=== PATIENT | male | born 1940 | race Caucasian/White ===

== ENCOUNTER 2016-08-12 13:25 | Inpatient (IN) | payer OTHER ==
[~2016-08-12] VITALS: Ht 170.2 cm; Wt 106.3 kg
[~2016-08-12 13:25] MED LIST: AMLO-114 PO; ASPCH81X PO; CLOP1TAB15 PO; FINA5TAB PO; LIVALO PO; LOSA100T26 PO; METF-384 PO; METO200T29 PO; NIAC500T11 PO; TAMS0.4C38 PO
--- NOTE | 2016-08-12 15:38 | EMERGENCY ROOM VISIT NOTE ---
History First contact with patient: 15:01 Chief Complaint: ILLNESS Stated Complaint: LETHARGIC, HYPERTENSION, DEHYDRATED HX: DIABETES History of Present Illness The patient is a 76 year old male who presents to the Emergency Room with complaints of feeling "blah" He has been having generalized malaise for the past 1 week. He also has nonstop nausea and has had difficulty eating and drinking PO. His symptoms occur primarily with exertion and walking. Daughter and note that he has note been able to ambulate much for the past week. He has also been feeling unsteady on his feet and weak. He did fall last night and family did need to all EMS to help pick him up at that time. Daughter and are concerned that he has been very unsteady on his feet. He denies any vertigo. This morning, his took his blood pressure, it was 191/139. He called his PCP's office and was told to come to the ED for further evaluation. Daughter notes that his BPs have been quite labile for the past several weeks and he was recently started on Spironolactone to help treat his hypertension. His blood pressures today were as follows: Today AM: 191/139;145/191;116/73 00;l128/70 Yesterday: BPs ranged from 160-180 systolic 2 days ago: 133/67; 148/86; 165/108; 166/106 He denies any chest pain, shortness of breath, palpitations of syncope. He denies lower extremity swelling but daughter notes that he does. He denies any headache He has not travelled recently and there are no sick contacts. Review of Systems A 10 point review of systems was negative unless stated above. 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) Current/Historical Medications Scheduled Amlodipine (Norvasc), 10 MG PO QAM Aspirin (Aspirin Chewable), 81 MG PO QAM Clopidogrel (Plavix), 75 MG PO QAM Dorzolamide Hcl (Trusopt Oph), 1 DROPS OPB BID Finasteride (Proscar), 5 MG PO QAM Losartan Potassium & Hydrochlo (Losartan Potassium/Hydroc), 1 TAB PO QAM Metformin Hcl (Glucophage), 1,000 MG PO BID Spironolactone (Aldactone), 25 MG PO DAILY Tamsulosin Hcl (Flomax), 0.4 MG PO QAM Travoprost (Travatan Z), 1 DROPS OPB HS [Livalo], 4 MG PO QAM Allergies Coded Allergies: Statins (Unverified Adverse Reaction, Intermediate, CRAMPS, 08/12/16) Physical Exam Vital Signs Date Time Temp Pulse Resp B/P Pulse Ox O2 Delivery O2 Flow Rate FiO2 08/12/16 16:50 96 20 150/86 91 Room Air 08/12/16 15:30 74 18 147/85 99 Room Air 08/12/16 13:31 36.7 78 18 128/80 92 Room Air Physical Exam Constitutional: Vital signs as above were reviewed. Eyes: Pupils equal, round, and reactive to light. Extraocular muscles are intact. No proptosis. No photophobia. ENT: Mucous membranes are moist. Oropharynx is clear. No sinus tenderness. TMs are clear bilaterally. Cardiovascular: Heart with a regular rate and rhythm. Pulses are palpable and symmetric in all 4 extremities. No pedal edema appreciated. JVD 2 cm in seated position; increased to 4 cm with hepatojugular reflex manoeuvre Respiratory: Lungs clear to auscultation bilaterally. No wheezes, rales, or rhonchi appreciated. No accessory muscle use. No retractions. No increased work of breathing. GI: Abdomen soft, nontender, nondistended. Normal active bowel sounds. No abdominal hernias appreciated. No rebound. No guarding. : No CVA tenderness appreciated. Musculoskeletal: No midline cervical or vertebral tenderness. No gross deformities. No bony tenderness. No calf swelling or tenderness. Baseline tenderness in left calf, secondary to neuropathy Integumentary: Warm, dry, no rashes appreciated. Neurological: Patient awake, alert, and oriented x 3. Cranial nerves two through 12 grossly intact. Motor 5 out of 5 strength bilateral upper and lower extremities. Lymph: No cervical lymphadenopathy appreciated. Medical Decision & Procedures ER Provider Diagnostic Interpretation: CHEST ONE VIEW PORTABLE CLINICAL HISTORY: shortness of breath and fatigue dyspnea COMPARISON STUDY: 08/06/2015 FINDINGS: The bones soft tissues and hemidiaphragms are normal. The cardiomediastinal silhouette is normal. The lungs are clear. The pulmonary vasculature is normal. IMPRESSION: Negative chest. Electronically signed by: Dmitry Hernandez M.D. 08/12/2016 3:57 PM Dictated Date/Time: 08/12/2016 3:56 PM Laboratory Results 08/12/16 15:35 Red Blood Count 5.34, Mean Corpuscular Volume 87.1, Mean Corpuscular Hemoglobin 30.0, Mean Corpuscular Hemoglobin Concent 34.4, Mean Platelet Volume 9.3, Neutrophils (%) (Auto) 65.5, Lymphocytes (%) (Auto) 10.9, Monocytes (%) (Auto) 23.2, Eosinophils (%) (Auto) 0.0, Basophils (%) (Auto) 0.2, Neutrophils # (Auto ) 3.44, Lymphocytes # (Auto) 0.57, Monocytes # (Auto) 1.22, Eosinophils # (Auto ) 0.00, Basophils # (Auto) 0.01 08/12/16 15:35 Test 08/12/16 15:35 08/12/16 17:03 White Blood Count 5.25 K/uL (4.8-10.8) Red Blood Count 5.34 M/uL (4.7-6.1) Hemoglobin 16.0 g/dL (14.0-18.0) Hematocrit 46.5 % (42-52) Mean Corpuscular Volume 87.1 fL (80-100) Mean Corpuscular Hemoglobin 30.0 pg (25-34) Mean Corpuscular Hemoglobin Concent 34.4 g/dl (32-36) Platelet Count 145 K/uL (130-400) Mean Platelet Volume 9.3 fL (7.4-10.4) Neutrophils (%) (Auto) 65.5 % Lymphocytes (%) (Auto) 10.9 % Monocytes (%) (Auto) 23.2 % Eosinophils (%) (Auto) 0.0 % Basophils (%) (Auto) 0.2 % Neutrophils # (Auto) 3.44 K/uL (1.4-6.5) Lymphocytes # (Auto) 0.57 K/uL (1.2-3.4) Monocytes # (Auto) 1.22 K/uL (0.11-0.59) Eosinophils # (Auto) 0.00 K/uL (0-0.5) Basophils # (Auto) 0.01 K/uL (0-0.2) RDW Standard Deviation 41.6 fL (36.4-46.3) RDW Coefficient of Variation 13.1 % (11.5-14.5) Immature Granulocyte % (Auto) 0.2 % Immature Granulocyte # (Auto) 0.01 K/uL (0.00-0.02) Anion Gap 12.0 mmol/L (3-11) Est Creatinine Clear Calc Drug Dose 51.6 ml/min Estimated GFR () 55.8 Estimated GFR (Non- 48.1 BUN/Creatinine Ratio 17.8 (10-20) Calcium Level 9.2 mg/dl (8.5-10.1) Total Bilirubin 0.5 mg/dl (0.2-1) Aspartate Amino Transf (AST/SGOT) 23 U/L (15-37) Alanine Aminotransferase (ALT/SGPT) 47 U/L (12-78) Alkaline Phosphatase 88 U/L (45-117) Total Creatine Kinase 113 U/L (39-308) Creatine Kinase MB 1.5 ng/ml (0.5-3.6) Creatine Kinase MB Ratio 1.3 (0-3.0) Troponin I 0.019 ng/ml (0-0.045) Total Protein 7.8 gm/dl (6.4-8.2) Albumin 3.8 gm/dl (3.4-5.0) Globulin 4.0 gm/dl (2.5-4.0) Albumin/Globulin Ratio 1.0 (0.9-2) Urine Color YELLOW Urine Appearance CLEAR (CLEAR) Urine pH 5.0 (4.5-7.5) Urine Specific [place] 1.014 (1.000-1.030) Urine Protein 2+ (NEG) Urine Glucose (UA) TRACE (NEG) Urine Ketones TRACE (NEG) Urine Occult Blood NEG (NEG) Urine Nitrite NEG (NEG) Urine Bilirubin NEG (NEG) Urine Urobilinogen NEG (NEG) Urine Leukocyte Esterase NEG (NEG) Urine WBC (Auto) 1-5 /hpf (0-5) Urine RBC (Auto) 0-4 /hpf (0-4) Urine Hyaline Casts (Auto) 1-5 /lpf (0-5) Urine Epithelial Cells (Auto) 10-20 /lpf (0-5) Urine Bacteria (Auto) NEG (NEG) Medications Administered Medications (Trade) Dose Ordered Sig/Юлия Route Start Time Stop Time Status Last Admin Dose Admin Sodium Chloride (Nss 500ml) 500 ml @ 999 mls/hr Q31M IV 08/12/16 15:30 09/11/16 15:29 08/12/16 15:41 999 MLS/HR ECG Change: Sinus tachycardia Minor Non-specific intra-ventricular conduction delay Abnormal ECG When compared with ECG of 06-AUG-2015 14:43, Vent. rate has increased BY 34 BPM QRS duration mildly increased Confirmed by YAEL HART ([id number]) on 08/12/2016 4:53:15 PM ED Course 15:00 - Patient evaluated Orders: CBC, CMP, troponin, CK, CKBM, EKG chest x-ray 16:25 - Reviewed CXR; no acute process CBC and CMP are grossly normal Reviewed case with Dr. Castorena UA ordered 17:10 - Discussed case with Dr. Castorena Added on UA to check for UTI Patient remains stable 17:30 - Dr. Castorena assessed patient in room Discussed admission for troponin trending and evaluation of ambulatory dysfunction 18:00 - Case discussed with Dr. Trujillo; patient to be admitted to hospitalist service for further care Medical Decision A thorough history was obtained, physical examination performed and the EMR was reviewed. The case was reviewed multiple times over with Dr. Maci Castorena during the patient's ED visit. Patient presents with 1 week of exertional nausea, poor intake and ambulatory dysfunction. Differential diagnosis Given cardiac history, we cannot exclude this being of cardiac etiology. An EKG did not show any acute ST or T wave changes today and in the ED he did not have active complaints of chest pain or shortness of breath. One set of cardiac enzymes was negative. However, he would benefit from observation and troponin trending. Review of labs was negative for infection, anemia. CMP was negative for renal dysfunction or derangement of liver enzymes. A chest x-ray was negative for evidence consolidation and urinalysis was unremarkable for infection. Unfortunately, the cause of his symptom is still unknown. He has been given 500 ml of IV fluid and notes feeling a little bit better. Unfortunately, he has had ambulatory dysfunction at home and family notes it would be unsafe for him to go home. He already fell yesterday and required assistance from EMS services. As such he would benefit form PT and OT evaluations to determine whether he needs inpatient rehabilitation. The case as discussed with the hospitalist service. He was discharged in stable condition. Impression Primary Impression: Nausea & vomiting Additional Impression: Ambulatory dysfunction Departure Information Dispostion Being Evaluated By Hospitalist Condition GOOD Referrals Sundeep Huffman M.D. (PCP) Patient Instructions My [facility] Problem Qualifiers
[2016-08-12] MEDS: SODIUM CHLORIDE 0.9% 500ML 500 ML IV SCH ×3 (15:41→16:32)
[2016-08-12 15:48] LABS: BASO % 0.2 %; BASO ABS # 0.01 K/uL (0-0.2); COMPLETE YES; HEMATOCRIT 46.5 % (42-52); IG% 0.2 %; LYMPH % 10.9 %; LYMPH ABS # 0.57 K/uL (1.2-3.4); MEAN CELL VOLUME 87.1 fL (80-100); MEAN CORPUSCULAR HGB CONC 34.4 g/dl (32-36); MEAN PLATELET VOLUME 9.3 fL (7.4-10.4); MONO % 23.2 %; NEUT % 65.5 %; PLATELET COUNT 145 K/uL (130-400); RED BLOOD COUNT 5.34 M/uL (4.7-6.1); WHITE BLOOD COUNT 5.25 K/uL (4.8-10.8)
[2016-08-12] MEDS ORDERED: DORZ2SOL17 OPB (15:54)
[2016-08-12] MEDS ORDERED: SPIR25TA89 PO (15:54)
[2016-08-12] MEDS ORDERED: TRAV0.00 OPB (15:54)
--- NOTE | 2016-08-12 15:58 | DIAGNOSTIC IMAGING REPORT ---
CHEST ONE VIEW PORTABLE CLINICAL HISTORY: shortness of breath and fatigue dyspnea COMPARISON STUDY: 08/06/2015 FINDINGS: The bones soft tissues and hemidiaphragms are normal. The cardiomediastinal silhouette is normal. The lungs are clear. The pulmonary vasculature is normal. IMPRESSION: Negative chest. Electronically signed by: Dmitry Hernandez M.D. 08/12/2016 3:57 PM Dictated Date/Time: 08/12/2016 3:56 PM
[2016-08-12 16:12] LABS: BUN/CREATININE RATIO 17.8 (10-20); CALCIUM 9.2 mg/dl (8.5-10.1); CREATININE 1.4 mg/dl (0.60-1.40); POTASSIUM 3.7 mmol/L (3.5-5.1)
[2016-08-12 16:17] LABS: CKMB/CK RATIO 1.3 (0-3.0)
[2016-08-12 17:30] LABS: URINE APPEARANCE CLEAR (CLEAR); URINE BILIRUBIN NEG (NEG); URINE COLOR YELLOW; URINE NITRITE NEG (NEG); URINE SPECIFIC GRAVITY 1.014 (1.000-1.030); UROBILINOGEN NEG (NEG); ZZUR CULT IF INDIC CLEAN CATCH NO
[2016-08-12 17:33] LABS: MANUAL MICROSCOPIC REQUIRED? NO; REVIEW REQ? NO
--- NOTE | 2016-08-12 18:12 | EMERGENCY ROOM VISIT NOTE ---
ED Visit Note First contact with patient: 15:19 Resident Physician Supervision Note: I interviewed and examined the patient. Discussed with Dr. Humphrey and agree with findings and plan as documented in the note. Any exceptions or clarifications are listed here: Patient's laboratory work is fairly unrevealing. He seems to be resting comfortably on exam. According to the patient's family, he has had some ambulatory dysfunction and fall. He has an exertional nausea and vomiting. He will be evaluated by the hospitalist service for further cardiac evaluation. Please refer to 's notes for further details of the history, physical and visit. Documented By: Maci Castorena
[2016-08-12] MEDS ORDERED: NITROGLYCERIN 0.4 MG SL PER TAB CHARGE SL PRN (19:15)
[2016-08-12] MEDS ORDERED: ACETAMINOPHEN 325 MG TAB PO PRN (19:15)
[2016-08-12] MEDS ORDERED: ZOLPIDEM TARTRATE 5 MG TAB PO PRN (19:15)
[2016-08-12] MEDS ORDERED: GLUCOSE 40% GEL 15 GM TUBE PO PRN (19:30)
[2016-08-12] MEDS ORDERED: DEXTROSE 50% 50 ML SYR IV PRN (19:30)
[2016-08-12] MEDS ORDERED: GLUCOSE 10 TABS/TUBE PO PRN (19:30)
[2016-08-12] MEDS ORDERED: GLUCAGON FOR INJ 1 MG VIAL SQ PRN (19:30)
[2016-08-12] MEDS ORDERED: ONDANSETRON INJ 2 MG/ML 2 ML VIAL IV PRN (19:30)
[2016-08-12 20:00] VITALS: BP 136/68; PULSE 96; TEMP 36.6; O2SAT 93; Ht 170.2 cm; Wt 106.3 kg
[2016-08-12] MEDS: DICLOFENAC SOD 1% GEL 100 GM TUBE EXT SCH (21:42)
[2016-08-12] MEDS: DORZOLAMIDE HCL 2% OPH SOLN 10 ML BTL OPB SCH (21:42)
[2016-08-12] MEDS: TRAVOPROST Z 0.004% OPH SOLN 2.5 ML BTL OPB SCH (21:43)
[2016-08-12] MEDS: INSULIN ASPART 100 UNITS/ML 3 ML PEN SC SCH (21:44)
[2016-08-12] MEDS: TAMSULOSIN HCL 0.4 MG CAP PO SCH ×2 (21:44→21:45)
[2016-08-12 22:17] LABS: CKMB/CK RATIO 1.1 (0-3.0)
[2016-08-12] MEDS ORDERED: INFLUENZA VIRUS QUAD VACCINE 0.5 ML SYR IM. ONE (23:15)
[2016-08-12] MEDS ORDERED: INFLUENZA ADMINISTRATION CHARGE ONE (23:15)
[2016-08-12] MEDS: SIMETHICONE 80 MG CHEW PO SCH (23:38)
[2016-08-12 23:40] VITALS: BP 117/70; PULSE 86; TEMP 37; O2SAT 93
[2016-08-13 03:29] LABS: CKMB/CK RATIO 1.4 (0-3.0)
--- NOTE | 2016-08-13 03:47 | History and Physical ---
History & Physical Date & Time of Service: Aug 13, 2016 at 03:35 Chief Complaint: Nausea And Vomiting, Sob Primary Care Physician: Sundeep Huffman M.D. History of Present Illness Source: patient, family The patient is a 76-year-old male who presents emergency department with family with generalized malaise, nausea and dyspnea on exertion. He is been unsteady on his feet with general is weakness and unable to walk much over the past 1-2 weeks. He did fall at home last night, and family called EMS to help pick them up at that time. He denies any lightheadedness or dizziness or vertigo. His took his blood pressure at home, reportedly was 191/131, and when called his PCPs office, they referred him to emergency department for assessment. He has not had any recent travel, and is not aware of any sick contacts. 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) Multi-Drug Resistant Organisms History of MDRO: No Allergies Coded Allergies: Statins (Unverified Adverse Reaction, Intermediate, CRAMPS, 08/12/16) Home Medications Scheduled Amlodipine (Norvasc), 10 MG PO QAM Aspirin (Aspirin Chewable), 81 MG PO QAM Clopidogrel (Plavix), 75 MG PO QAM Dorzolamide Hcl (Trusopt Oph), 1 DROPS OPB BID Finasteride (Proscar), 5 MG PO QAM Losartan Potassium & Hydrochlo (Losartan Potassium/Hydroc), 1 TAB PO QAM Metformin Hcl (Glucophage), 1,000 MG PO BID Spironolactone (Aldactone), 25 MG PO DAILY Tamsulosin Hcl (Flomax), 0.4 MG PO QAM Travoprost (Travatan Z), 1 DROPS OPB HS [Livalo], 4 MG PO QAM Review of Systems The patient denies vision change, hearing change, sore throat, fevers, chills, sweats, weight change, vomiting, abdominal pain, pelvic pain, blood in urine or stool, dysuria, urinary frequency or urgency, rash, abnormal bruising or bleeding, focal weakness, back or neck pain, night sweats, or allergy symptoms. The review of systems is otherwise negative other than for that already noted above, and at least 10 systems have been reviewed. Physical Exam Vital Signs Date Time Temp Pulse Resp B/P Pulse Ox O2 Delivery O2 Flow Rate FiO2 08/13/16 00:00 Room Air 08/12/16 23:40 37.0 86 20 117/70 93 Room Air 08/12/16 20:00 36.6 96 18 136/68 93 Room Air 08/12/16 19:35 78 18 120/86 93 08/12/16 18:24 95 18 126/79 93 Room Air 08/12/16 16:50 96 20 150/86 91 Room Air 08/12/16 15:30 74 18 147/85 99 Room Air 08/12/16 13:31 36.7 78 18 128/80 92 Room Air The patient is awake, well-developed and adequately nourished, alert and oriented 3, normocephalic and atraumatic, lying in bed and in no acute distress. HEENT--PERRL, EOMI, mucous membranes and oropharynx dry. Neck--supple, no JVD or bruits, thyroid normal, trachea midline, no adenopathy. Heart--normal S1 and S2, no extra beats, no murmurs, rubs or gallops. Lungs--few scattered wheezes bilaterally, no respiratory distress, no accessory muscle use. Abdomen--normal bowel sounds and soft, nontender and nondistended, no hernias or masses, no organomegaly. Extremities--no cyanosis, clubbing or edema. There are good distal pulses b/l. Dermatologic--normal skin turgor, normal color, warm and dry, no abnormal lymph nodes, no rash. Neurologic--cranial nerves II through XII grossly intact, motor and sensory examination normal. Rheumatologic--significant tenderness to light touch along medial malleolus right leg. Psychiatric--normal affect. Diagnostics Laboratory Results Results Past 24 Hours Test 08/12/16 15:35 08/12/16 17:03 08/12/16 21:22 08/12/16 21:40 Range/Units White Blood Count 5.25 4.8-10.8 K/uL Red Blood Count 5.34 4.7-6.1 M/uL Hemoglobin 16.0 14.0-18.0 g/dL Hematocrit 46.5 42-52 % Mean Corpuscular Volume 87.1 80-100 fL Mean Corpuscular Hemoglobin 30.0 25-34 pg Mean Corpuscular Hemoglobin Concent 34.4 32-36 g/dl Platelet Count 145 130-400 K/uL Mean Platelet Volume 9.3 7.4-10.4 fL Neutrophils (%) (Auto) 65.5 % Lymphocytes (%) (Auto) 10.9 % Monocytes (%) (Auto) 23.2 % Eosinophils (%) (Auto) 0.0 % Basophils (%) (Auto) 0.2 % Neutrophils # (Auto) 3.44 1.4-6.5 K/uL Lymphocytes # (Auto) 0.57 1.2-3.4 K/uL Monocytes # (Auto) 1.22 0.11-0.59 K/uL Eosinophils # (Auto) 0.00 0-0.5 K/uL Basophils # (Auto) 0.01 0-0.2 K/uL RDW Standard Deviation 41.6 36.4-46.3 fL RDW Coefficient of Variation 13.1 11.5-14.5 % Immature Granulocyte % (Auto) 0.2 % Immature Granulocyte # (Auto) 0.01 0.00-0.02 K/uL Sodium Level 135 136-145 mmol/L Potassium Level 3.7 3.5-5.1 mmol/L Chloride Level 96 98-107 mmol/L Carbon Dioxide Level 27 21-32 mmol/L Anion Gap 12.0 3-11 mmol/L Blood Urea Nitrogen 25 7-18 mg/dl Creatinine 1.40 0.60-1.40 mg/dl Est Creatinine Clear Calc Drug Dose 51.6 ml/min Estimated GFR () 55.8 Estimated GFR (Non- 48.1 BUN/Creatinine Ratio 17.8 10-20 Random Glucose 180 70-99 mg/dl Uric Acid 8.2 2.6-7.2 mg/dl Calcium Level 9.2 8.5-10.1 mg/dl Total Bilirubin 0.5 0.2-1 mg/dl Aspartate Amino Transf (AST/SGOT) 23 15-37 U/L Alanine Aminotransferase (ALT/SGPT) 47 12-78 U/L Alkaline Phosphatase 88 45-117 U/L Total Creatine Kinase 113 105 39-308 U/L Creatine Kinase MB 1.5 1.2 0.5-3.6 ng/ml Creatine Kinase MB Ratio 1.3 1.1 0-3.0 Troponin I 0.019 0.027 0-0.045 ng/ml Total Protein 7.8 6.4-8.2 gm/dl Albumin 3.8 3.4-5.0 gm/dl Globulin 4.0 2.5-4.0 gm/dl Albumin/Globulin Ratio 1.0 0.9-2 Urine Color YELLOW Urine Appearance CLEAR CLEAR Urine pH 5.0 4.5-7.5 Urine Specific [place] 1.014 1.000-1.030 Urine Protein 2+ NEG Urine Glucose (UA) TRACE NEG Urine Ketones TRACE NEG Urine Occult Blood NEG NEG Urine Nitrite NEG NEG Urine Bilirubin NEG NEG Urine Urobilinogen NEG NEG Urine Leukocyte Esterase NEG NEG Urine WBC (Auto) 1-5 0-5 /hpf Urine RBC (Auto) 0-4 0-4 /hpf Urine Hyaline Casts (Auto) 1-5 0-5 /lpf Urine Epithelial Cells (Auto) 10-20 0-5 /lpf Urine Bacteria (Auto) NEG NEG Bedside Glucose 132 70-99 mg/dl Test 08/13/16 03:03 Range/Units Total Creatine Kinase 99 39-308 U/L Creatine Kinase MB 1.4 0.5-3.6 ng/ml Creatine Kinase MB Ratio 1.4 0-3.0 Troponin I 0.023 0-0.045 ng/ml Diagnostic Radiology Patient Name: PAULINE MONTALVO Unit Number: [id number] Dictated: 08/12/161555 Transcribed: 08/12/161555 MS Printed Date/Time: [~ rep prt dt]/[~ rep prt tm] [~ rep ct labl] - [~ rep ct ivnm] [facility] [place] [place] [address] Dictated: 08/12/161555 Transcribed: 08/12/16 155 MS Printed Date/Time: [~ rep prt dt]/[~ rep prt tm] [~ rep ct labl] - [~ rep ct ivnm] CHEST ONE VIEW PORTABLE CLINICAL HISTORY: shortness of breath and fatigue dyspnea COMPARISON STUDY: 08/06/2015 FINDINGS: The bones soft tissues and hemidiaphragms are normal. The cardiomediastinal silhouette is normal. The lungs are clear. The pulmonary vasculature is normal. IMPRESSION: Negative chest. Electronically signed by: Dmitry Hernandez M.D. 08/12/2016 3:57 PM Dictated Date/Time: 08/12/2016 3:56 PM The status of this report is Signed. Draft = Not yet reviewed or approved by Radiologist. Signed = Reviewed and approved by Radiologist. <AttendingPhy></AttendingPhy> <FamilyPhy>Sundeep Huffman M.D.</FamilyPhy> < PrimaryPhy>Sundeep Huffman M.D.</PrimaryPhy> <UnitNumber>[id number]</UnitNumber > <VisitNumber>[id number]</VisitNumber> <PatientName>SELVINPAULINE Heather</ PatientName> <DateOfBirth>1940</DateOfBirth> <Location>[facility]</Location> < ServiceDate>08/12/16</ServiceDate> <MNE>ESINDI</MNE> <OrderingPhy>Rahul Humphrey MD</OrderingPhy> <OrderingPhyMNE>f rep ord dr alba</OrderingPhyMNE> < DictatingPhyMNE>f rep dict dr alba</DictatingPhyMNE> <CCListMNE>f rep ct parth</ CCListMNE> <AdmittingPhyMNE>f pt admit dr alba</AdmittingPhyMNE> <AttendingPhyMNE >f pt attend dr alba</AttendingPhyMNE> <ConsultingPhyMNE>f pt consult dr alba</ConsultingPhyMNE> <FamilyPhyMNE>f pt fam dr alba</FamilyPhyMNE> <OtherPhyMNE>f pt other dr alba</OtherPhyMNE> < PrimaryPhyMNE>f pt prim care dr alba</PrimaryPhyMNE> <ReferringPhyMNE>f pt referring dr alba</ReferringPhyMNE> EKG EKG shows sinus tachycardia 101 beats minute, left axis deviation, there are no acute ST-T changes. Impression Assessment and Plan Increased falls/decreased mobility/dyspnea on exertion/coronary artery disease history/right carotid stent, status post left CEA--the patient will be admitted to the telemetry unit for serial cardiac enzymes, cardiac rhythm monitoring, and a 2-D echocardiogram with Dopplers. His symptoms do not suggest a stroke. If cardiac workup is negative, he'll get a PT and OT assessment for gait and balance and strength training. Recurrent nausea/dyspnea on exertion--patient does have suggestion of aerophagia , and will be placed on simethicone 80 mg by mouth every 6 hours. Coronary disease/hypertension--continue amlodipine 10 mg by mouth every morning , chewable aspirin 81 mg by mouth every morning, clopidogrel 75 mg by mouth every morning, losartan potassium 50 mg by mouth daily, hold HCTZ 25 mg by mouth daily. Continue spironolactone 25 mg by mouth daily. Diabetes mellitus--hold metformin 1000 mg by mouth twice a day, place on Accu- Cheks before meals and at bedtime with NovoLog coverage. BPH--continue tamsulosin 0.4 mg by mouth a change from a.m. to at bedtime, and continue finasteride 5 mg by mouth every morning. Next Glaucoma--continue Travatan Z, 1 drop OPB at bedtime, and Trusopt one drop OPB twice a day. Hypercholesterolemia--on Livalo 4 mg by mouth daily. Right medial malleolus tenderness--question the possibility of gout, will check a uric acid level, and do a trial of topical Voltaren gel. Level of Care Telemetry Advanced Directives Existing Advance Directive: Yes Existing Living Will: Yes Existing Power of Teacher Learning Disabled: Yes Resuscitation Status FULL RESUSCITATION VTE Prophylaxis VTE Risk Assessment Done? Y/N: Yes Risk Level: Moderate Given or contraindicated: SCD's
[2016-08-13 04:00] VITALS: BP 140/74; PULSE 87; TEMP 36.9; O2SAT 91
[2016-08-13] MEDS ORDERED: PNEUMOCOCCAL POLYSACCHARIDES 25 MCG/0.5 ML VIAL/SYR IM. ONE (04:30)
[2016-08-13] MEDS ORDERED: PNEUMOCOCCAL ADMINISTRATION CHARGE ONE (04:30)
[2016-08-13] MEDS: SIMETHICONE 80 MG CHEW PO SCH ×4 (05:55→23:49)
[2016-08-13 07:23] LABS: BASO % 0.2 %; BASO ABS # 0.01 K/uL (0-0.2); COMPLETE YES; EOS % 0.2 %; HEMATOCRIT 43.7 % (42-52); LYMPH % 21.7 %; LYMPH ABS # 0.98 K/uL (1.2-3.4); MEAN CELL VOLUME 88.8 fL (80-100); MEAN CORPUSCULAR HEMOGLOBIN 30.9 pg (25-34); MEAN CORPUSCULAR HGB CONC 34.8 g/dl (32-36); MEAN PLATELET VOLUME 9.5 fL (7.4-10.4); MONO % 25.7 %; NEUT % 52.2 %; PLATELET COUNT 138 K/uL (130-400); RED BLOOD COUNT 4.92 M/uL (4.7-6.1); WHITE BLOOD COUNT 4.52 K/uL (4.8-10.8)
[2016-08-13 07:30] VITALS: BP 147/70; PULSE 72; TEMP 37.1; O2SAT 95
[2016-08-13 07:33] LABS: INR 1.1 (0.9-1.1); PARTIAL THROMBOPLASTIN RATIO 1.2; PROTHROMBIN TIME (PATIENT) 11.3 SECONDS (9.0-12.0)
[2016-08-13 07:56] LABS: BUN/CREATININE RATIO 18.5 (10-20); CALCIUM 8.7 mg/dl (8.5-10.1); CREATININE 1.2 mg/dl (0.60-1.40); MAGNESIUM 2.3 mg/dl (1.8-2.4); POTASSIUM 3.5 mmol/L (3.5-5.1)
[2016-08-13] MEDS: AMLODIPINE BESYLATE 5 MG TAB PO SCH (08:18)
[2016-08-13] MEDS: ASPIRIN 81 MG ECTAB PO SCH (08:18)
[2016-08-13] MEDS: FINASTERIDE 5 MG TAB PO SCH (08:18)
[2016-08-13] MEDS: CLOPIDOGREL BISULFATE 75 MG TAB PO SCH (08:19)
[2016-08-13] MEDS: LOSARTAN POTASSIUM 25 MG TAB PO SCH (08:19)
[2016-08-13] MEDS: TAMSULOSIN HCL 0.4 MG CAP PO SCH (08:22)
[2016-08-13] MEDS: DORZOLAMIDE HCL 2% OPH SOLN 10 ML BTL OPB SCH ×2 (08:25→20:49)
[2016-08-13] MEDS: DICLOFENAC SOD 1% GEL 100 GM TUBE EXT SCH ×4 (08:26→20:51)
[2016-08-13] MEDS: INSULIN ASPART 100 UNITS/ML 3 ML PEN SC SCH ×4 (08:35→20:44)
[2016-08-13] MEDS ORDERED: LIVALO 4 MG PO SCH (09:00)
[2016-08-13] MEDS: SPIRONOLACTONE 25 MG TAB PO SCH (09:18)
[2016-08-13 11:09] VITALS: BP 124/67; PULSE 84; TEMP 37; O2SAT 92
[2016-08-13 11:57] LABS: CKMB/CK RATIO 1.3 (0-3.0)
[2016-08-13 14:35] VITALS: BP 134/74; PULSE 90; TEMP 36.8; O2SAT 91
--- NOTE | 2016-08-13 14:56 | DIAGNOSTIC IMAGING REPORT ---
CHEST 2 VIEWS ROUTINE CLINICAL HISTORY: Pneumonia SHORTNESS OF BREATH. FATIGUE. COMPARISON STUDY: 08/12/2016 FINDINGS: The heart is mildly enlarged. There is no focal pulmonary consolidation. There is no failure. No pleural effusions are visualized.[ IMPRESSION: No active disease in the chest. Electronically signed by: Hoang Self M.D. 08/13/2016 2:55 PM Dictated Date/Time: 08/13/2016 2:55 PM
[2016-08-13 16:43] LABS: INFLUENZA A PCR POS for Influ A (NEG)
[2016-08-13 16:44] LABS: INFLUENZA B PCR Neg for Influ B (NEG)
[2016-08-13] MEDS ORDERED: OSELTAMIVIR PHOSPHATE 75 MG CAP PO ONE (18:00)
[2016-08-13 19:56] VITALS: BP 149/83; PULSE 80; TEMP 36.9; O2SAT 91
[2016-08-13 20:00] VITALS: O2SAT 91
--- NOTE | 2016-08-13 20:33 | Progress Note ---
Subjective Date of Service: Aug 13, 2016. Subjective Pt evaluation today including: conversation w/ patient, conversation w/ family (, daughter ), physical exam, chart review, lab review, review of studies ( old echo from 2016; repeat cxr today), review of inpatient medication list Pain: denies h/a, cp, abd pain PO Intake: MUCH better today Voiding: no voiding problems (denies dysuria ) Patient states that anorexia, fatigue, feeling poorly, nausea, emesis, etc began last Friday or so and got worse thru the weekend. He feels MUCH BETTER today with better appetite, more energy, and less fatigue. Denies chest pain, sob, saldaña. He does not recall any fever/chills at home. Telemetry late this afternoon showed short run of what appears to be a. fib or some other atrial tachycardia (<10 seconds). Did not have flu shot this year. Gait at home was unsteady now improved. Problem List Medical Problems: (1) Ambulatory dysfunction Status: Acute (2) Nausea & vomiting Status: Acute (3) TIA (transient ischemic attack) Status: Acute Review of Systems Constitutional: + fatigue, + weakness, No chills, No fever, No sweats ENT: No sore throat Respiratory: No cough, No dyspnea at rest, No sputum Cardiac: No chest pain, No orthopnea Abdomen: + diarrhea (chronic, x 2-3 months), No nausea, No pain, No vomiting Objective Vital Signs Date Time Temp Pulse Resp B/P Pulse Ox O2 Delivery O2 Flow Rate FiO2 08/13/16 20:00 91 Room Air 08/13/16 19:56 36.9 80 16 149/83 91 Room Air 08/13/16 15:24 Room Air 08/13/16 14:35 36.8 90 20 134/74 91 08/13/16 11:29 Room Air 08/13/16 11:09 37.0 84 18 124/67 92 08/13/16 07:30 37.1 72 18 147/70 95 08/13/16 07:29 Room Air 08/13/16 04:00 36.9 87 20 140/74 91 Room Air 08/13/16 04:00 Room Air 08/13/16 00:00 Room Air 08/12/16 23:40 37.0 86 20 117/70 93 Room Air Physical Exam General Appearance: no apparent distress, + obese ENT: pharynx normal Neck: no JVD Respiratory/Chest: no respiratory distress, no accessory muscle use, + wheezing (mild, b/l lower lobes) Cardiovascular: regular rate, rhythm, no gallop, + systolic murmur (2/6 RUSB) Abdomen: normal bowel sounds, non tender, soft, no organomegaly Extremities: no pedal edema Neurologic/Psychiatric: no motor/sensory deficits, alert, normal mood/affect, oriented x 3 Skin: no rash Laboratory Results Last 24 Hours Test 08/12/16 21:22 08/12/16 21:40 08/13/16 03:03 08/13/16 06:40 Total Creatine Kinase 105 U/L 99 U/L Creatine Kinase MB 1.2 ng/ml 1.4 ng/ml Creatine Kinase MB Ratio 1.1 1.4 Troponin I 0.027 ng/ml 0.023 ng/ml Bedside Glucose 132 mg/dl White Blood Count 4.52 K/uL Red Blood Count 4.92 M/uL Hemoglobin 15.2 g/dL Hematocrit 43.7 % Mean Corpuscular Volume 88.8 fL Mean Corpuscular Hemoglobin 30.9 pg Mean Corpuscular Hemoglobin Concent 34.8 g/dl Platelet Count 138 K/uL Mean Platelet Volume 9.5 fL Neutrophils (%) (Auto) 52.2 % Lymphocytes (%) (Auto) 21.7 % Monocytes (%) (Auto) 25.7 % Eosinophils (%) (Auto) 0.2 % Basophils (%) (Auto) 0.2 % Neutrophils # (Auto) 2.36 K/uL Lymphocytes # (Auto) 0.98 K/uL Monocytes # (Auto) 1.16 K/uL Eosinophils # (Auto) 0.01 K/uL Basophils # (Auto) 0.01 K/uL RDW Standard Deviation 42.8 fL RDW Coefficient of Variation 13.2 % Immature Granulocyte % (Auto) 0.0 % Immature Granulocyte # (Auto) 0.00 K/uL Prothrombin Time 11.3 SECONDS Prothromb Time International Ratio 1.1 Activated Partial Thromboplast Time 30.1 SECONDS Partial Thromboplastin Ratio 1.2 Sodium Level 139 mmol/L Potassium Level 3.5 mmol/L Chloride Level 101 mmol/L Carbon Dioxide Level 28 mmol/L Anion Gap 10.0 mmol/L Blood Urea Nitrogen 22 mg/dl Creatinine 1.20 mg/dl Est Creatinine Clear Calc Drug Dose 59.9 ml/min Estimated GFR () 67.2 Estimated GFR (Non- 58.0 BUN/Creatinine Ratio 18.5 Random Glucose 136 mg/dl Calcium Level 8.7 mg/dl Magnesium Level 2.3 mg/dl Total Bilirubin 0.5 mg/dl Direct Bilirubin 0.1 mg/dl Aspartate Amino Transf (AST/SGOT) 27 U/L Alanine Aminotransferase (ALT/SGPT) 43 U/L Alkaline Phosphatase 77 U/L Total Protein 6.8 gm/dl Albumin 3.3 gm/dl Test 08/13/16 07:18 08/13/16 11:00 08/13/16 11:22 08/13/16 14:20 Bedside Glucose 127 mg/dl 168 mg/dl Total Creatine Kinase 99 U/L Creatine Kinase MB 1.3 ng/ml Creatine Kinase MB Ratio 1.3 Troponin I 0.023 ng/ml Influenza Type A (RT-PCR) POS for Influ A Influenza Type A Antigen Neg for Influ A Influenza Type B Antigen Neg for Influ B Influenza Type B (RT-PCR) Neg for Influ B Test 08/13/16 16:20 Bedside Glucose 131 mg/dl Assessment and Plan 76yo male: 1. influenza A infection - PCR +. Explains last several days of symptoms at home. Start tamiflu, although I counseled him it may not have huge impact on clinical course since he is several days into his illness. 2. nausea/emesis/diarrhea - resolved. Suspect 2nd to #1. 3. mild acute kidney injury - resolved; Cr was 1.4, now 1.2 with fluids. 2nd to dehydration. 4. elevated uric acid level - no evidence of active gout on exam, but has had gouty arthritis in the past. Stop HCTZ indefinitely. 5. HTN, with significant lability at home last few days - unsure of etiology of the lability, but perhaps was related to poor absorption of meds in the midst of emesis OR he wasn't taking them consistently because of decreased PO intake. Either way BPs are improved. 6. CAD s/p RCA infarct in the past - cont asa, plavix. Unsure why he is not on beta mayra. Cardiac enzymes completely negative since admission. I do not think he was having ischemic symptoms pre-hospital. ECHO in AM to assess wall motion and aortic stenosis. 7. h/o - echo in AM. 8. h/o embolic stroke - if the strip today was in fact a. fib he is candidate for anticoagulation. Would go with eliquis or xarelto. Will d/w patient in AM. 9. recent gait disturbance - likely due to #1 above. Improved. PT/OT evals prior to discharge. 10. T2DM - controlled. 11. right ankle pain - chronic, x 2-3 years -- tarsal tunnel syndrome? tibialis tendonitis? Podiatry referral after d/c. Cont voltaren gel. 12. DVT proph - lovenox 40 daily. updated family PT eval prior to d/c Discharge planning: home
[2016-08-13] MEDS: TRAVOPROST Z 0.004% OPH SOLN 2.5 ML BTL OPB SCH (20:50)
[2016-08-13] MEDS ORDERED: ENOXAPARIN 40 MG/0.4 ML SYR SQ ONE (21:30)
[2016-08-13] MEDS: OSELTAMIVIR PHOSPHATE 75 MG CAP PO SCH (23:50)
[2016-08-14] VITALS (10 sets, daily range): BP systolic 121–163; BP diastolic 75–83; PULSE 68–89; TEMP 36.7–37.2; O2SAT 91–94
[2016-08-14] MEDS: SIMETHICONE 80 MG CHEW PO SCH ×2 (05:15→12:35)
[2016-08-14 07:11] LABS: BASO % 0.4 %; BASO ABS # 0.02 K/uL (0-0.2); COMPLETE YES; EOS % 0.8 %; HEMATOCRIT 45.3 % (42-52); IG% 0.2 %; LYMPH % 15.8 %; LYMPH ABS # 0.84 K/uL (1.2-3.4); MEAN CELL VOLUME 87.8 fL (80-100); MEAN CORPUSCULAR HGB CONC 34.2 g/dl (32-36); MEAN PLATELET VOLUME 9.1 fL (7.4-10.4); MONO % 16.9 %; NEUT % 65.9 %; PLATELET COUNT 130 K/uL (130-400); RED BLOOD COUNT 5.16 M/uL (4.7-6.1); WHITE BLOOD COUNT 5.31 K/uL (4.8-10.8)
[2016-08-14 07:19] LABS: PARTIAL THROMBOPLASTIN RATIO 1.2; PROTHROMBIN TIME (PATIENT) 10.9 SECONDS (9.0-12.0)
[2016-08-14] MEDS: DORZOLAMIDE HCL 2% OPH SOLN 10 ML BTL OPB SCH (08:03)
[2016-08-14] MEDS: FINASTERIDE 5 MG TAB PO SCH (08:03)
[2016-08-14] MEDS: OSELTAMIVIR PHOSPHATE 75 MG CAP PO SCH (08:03)
[2016-08-14] MEDS: CLOPIDOGREL BISULFATE 75 MG TAB PO SCH (08:03)
[2016-08-14] MEDS: SPIRONOLACTONE 25 MG TAB PO SCH (08:03)
[2016-08-14] MEDS: ASPIRIN 81 MG ECTAB PO SCH (08:03)
[2016-08-14] MEDS: TAMSULOSIN HCL 0.4 MG CAP PO SCH (08:03)
[2016-08-14] MEDS: AMLODIPINE BESYLATE 5 MG TAB PO SCH (08:04)
[2016-08-14] MEDS: LOSARTAN POTASSIUM 25 MG TAB PO SCH (08:04)
[2016-08-14] MEDS: DICLOFENAC SOD 1% GEL 100 GM TUBE EXT SCH ×2 (08:05→12:37)
[2016-08-14] MEDS: INSULIN ASPART 100 UNITS/ML 3 ML PEN SC SCH ×2 (08:13→12:36)
[2016-08-14 08:21] LABS: CALCIUM 8.6 mg/dl (8.5-10.1); CREATININE 1.1 mg/dl (0.60-1.40); MAGNESIUM 2.2 mg/dl (1.8-2.4); POTASSIUM 3.4 mmol/L (3.5-5.1)
[2016-08-14] MEDS ORDERED: POTASSIUM CHLORIDE 10 MEQ TABCR PO STA (08:28)
[2016-08-14] MEDS ORDERED: METOPROLOL SUCC 25MG EXT REL TAB PO SCH (09:00)
[2016-08-14] MEDS ORDERED: ENOXAPARIN 40 MG/0.4 ML SYR SQ SCH (09:00)
[2016-08-14] MEDS ORDERED: PERFLUTREN LIPID MICROSPHERE (DEFINITY) IV ONE (10:41)
--- NOTE | 2016-08-14 12:01 | ECHOCARDIOGRAM REPORT ---
*NOTICE TO RECEIVING REPUBLICAN AGENCY This information is strictly Confidential and protected under [place] law. [place] law prohibits you from making any further disclosure of this information unless further disclosure is expressly permitted by the written consent of the person to whom it pertains or is authorized by law. A general authorization for the release of medical or other information is not sufficient for this purpose. Hospital accepts no responsibility if the information is made available to any other person, INCLUDING THE PATIENT. Interpretation Summary * Name: PAULINE MONTALVO Study Date: 08/14/2016 11:18 AM BP: 151/75 mmHg * Patient Location: [facility]\S\N277\S\2 HR: 81 * : 1940 (M/d/yyyy) Gender: Male Height: 67 in * Age: 76 yrs Ethnicity: [place] Weight: 234 lb * Ordering Physician: Fly Headley * Referring Physician: Sundeep Huffman * Performed By: Amanda Leach RDCS * * Reason For Study: AFIB, H/O CAD WITH SD * BSA: 2.2 m2 * History: AFIB, H/O CAD WITH SD * Compared to prior study, there is no significant change. * -- Conclusions -- * The left ventricle is normal in size. * There is mild concentric left ventricular hypertrophy. * There is very mild hypokinesis of the inferior and posterior layne at the base with otherwise normal wall motion. * Left ventricular systolic function is normal. * Ejection Fraction = 55-60%. * Grade I diastolic dysfunction, (abnormal relaxation pattern). * The aortic vavle leaflets are moderately calcified. * Mild to moderate valvular aortic stenosis. * There is trace mitral regurgitation. * There is trace tricuspid regurgitation. Procedure Details * A complete two-dimensional transthoracic echocardiogram was performed (2D, M-mode, Doppler and color flow Doppler). Left Ventricle * The left ventricle is normal in size. * There is mild concentric left ventricular hypertrophy. * Left ventricular systolic function is normal. * Ejection Fraction = 55-60%. * There is very mild hypokinesis of the inferior and posterior layne at the base with otherwise normal wall motion. Right Ventricle * The right ventricle is normal in size and function. Atria * The left atrial size is normal. * Right atrial size is normal. * No ASD detected; PFO is not assessed. Mitral Valve * The mitral valve anatomy is normal. * There is no mitral valve stenosis. * There is trace mitral regurgitation. Tricuspid Valve * The tricuspid valve anatomy is normal. * There is no tricuspid stenosis. * There is trace tricuspid regurgitation. Aortic Valve * The aortic valve is trileaflet. * The aortic vavle leaflets are moderately calcified. * Mild to moderate valvular aortic stenosis. * No aortic regurgitation is present. Pulmonic Valve * The pulmonic valve is not well visualized. Great Vessels * The aortic root is normal size. Pericardium/Pleural * There is no pericardial effusion. Great Vessels * Normal inferior vena cava diameter and respiratory variation suggests normal central venous pressure. Left Ventricular Diastolic Function * Grade I diastolic dysfunction, (abnormal relaxation pattern). MMode 2D Measurements and Calculations IVSd 1.0 cm IVSs 1.8 cm LVIDd 5.4 cm LVIDs 4.1 cm LVPWd 10 cm LVPWs 1.7 cm IVS/LVPW 1.0 FS 23.9 % EDV(Teich) 140.8 ml ESV(Teich) 74.3 ml EF(Teich) 47.2 % EDV(cubed) 156.7 ml ESV(cubed) 69.0 ml EF(cubed) 55.9 % % IVS thick 73.0 % % LVPW thick 71.9 % LV mass(C)d 211.9 grams LV mass(C)dI 97.9 grams/m\S\2 LV mass(C)s 311.7 grams LV mass(C)sI 144.1 grams/m\S\2 SV(Teich) 66.5 ml SI(Teich) 30.7 ml/m\S\2 SV(cubed) 87.7 ml SI(cubed) 40.5 ml/m\S\2 Ao root diam 3.5 cm Ao root area 9.9 cm\S\2 LA dimension 3.9 cm LA/Ao 1.1 LVAd ap4 34.6 cm\S\2 LVLd ap4 8.2 cm EDV(MOD-sp4) 120.3 ml EDV(sp4-el) 123.8 ml LVAs ap4 22.5 cm\S\2 LVLs ap4 7.1 cm ESV(MOD-sp4) 62.4 ml ESV(sp4-el) 60.9 ml EF(MOD-sp4) 48.1 % EF(sp4-el) 50.8 % LVAd ap2 36.8 cm\S\2 LVLd ap2 9.0 cm EDV(MOD-sp2) 125.6 ml EDV(sp2-el) 128.4 ml LVAs ap2 21.6 cm\S\2 LVLs ap2 6.9 cm ESV(MOD-sp2) 54.6 ml ESV(sp2-el) 57.3 ml EF(MOD-sp2) 56.5 % EF(sp2-el) 55.3 % LVLd %diff 8.7 % EDV(MOD-bp) 126.6 ml LVLs %diff -2.85 % ESV(MOD-bp) 58.5 ml EF(MOD-bp) 53.8 % SV(MOD-sp4) 57.8 ml SI(MOD-sp4) 26.7 ml/m\S\2 SV(MOD-sp2) 71.0 ml SI(MOD-sp2) 32.8 ml/m\S\2 SV(MOD-bp) 68.1 ml SI(MOD-bp) 31.5 ml/m\S\2 SV(sp4-el) 63.0 ml SI(sp4-el) 29.1 ml/m\S\2 SV(sp2-el) 71.1 ml SI(sp2-el) 32.9 ml/m\S\2 Doppler Measurements and Calculations Ao V2 max 273.5 cm/sec Ao max PG 29.9 mmHg Ao max PG (full) 26.3 mmHg Ao V2 mean 202.8 cm/sec Ao mean PG 18.2 mmHg Ao mean PG (full) 16.4 mmHg Ao V2 VTI 48.8 cm LV V1 max PG 3.6 mmHg LV V1 mean PG 1.8 mmHg LV V1 max 94.9 cm/sec LV V1 mean 60.9 cm/sec LV V1 VTI 18.1 cm SV(Ao) 482.1 ml SI(Ao) 222.9 ml/m\S\2
[2016-08-14] MEDS ORDERED: ALBUT/IPRATROP 3MG/0.5MG NEB 3 ML VIAL INH STA (12:19)
[2016-08-14] MEDS ORDERED: IPRATROPIUM BROMIDE/ALBUTEROL respimat INH INH SCH (15:15)
[2016-08-14] MEDS ORDERED: TMF75 PO (15:39)
[2016-08-14] MEDS ORDERED: METO1TAB66 PO (15:39)
[2016-08-14] MEDS ORDERED: VLTG EXT (15:39)
[2016-08-14] MEDS ORDERED: CZR25 PO (15:39)
[2016-08-14] MEDS ORDERED: IPRA1AER2 INH (15:39)
--- NOTE | 2016-08-14 15:46 | Discharge Instructions ---
Discharge Instructions Admission Reason for Admission: Nausea And Vomiting, Shortness of breath, Fatigue Discharge Discharge Diagnosis / Problem: Influenza Type A infection Discharge Goals Goal(s): Learn about illness, Diagnostic testing, Therapeutic intervention Activity Recommendations Activity Limitations: as noted below Lifting Limitations: gradually increase as tolerated Exercise/Sports Limitations: gradually increase as tolerated . Instructions / Follow-Up Instructions / Follow-Up From Dr. Headley - 1. Influenza - * You are likely at the very tail end of the illness * TAKE 4 more days of tamiflu starting this evening * At this point you are unlikely to be contagious to others * May use the combivent inhaler, 1 puff every 6 hours as needed for cough or shortness of breath or wheezing 2. Heart disease / High blood pressure - * STOP your losartan-hydrochlorothiazide medication ( the hydrochlorothiazide can give you gout attacks) * START losartan 25mg once daily * START metoprolol xl 50mg once daily 3. Right ankle pain - * may use voltaren gel, 2 grams every 6 hours as needed for pain * see Dr. Mitchel Schneider - orthopedics (he is a foot/ankle orthopedic doctor) or Dr. Marilyn Fields (shell grader) at your convenience for this chronic problem * the pain could be arthritis, tibialis tendonitis, tarsal tunnel syndrome, or another condition 4. Follow-up Appointments - * see Dr. Huffman within 1 week * see Dr. Crawford within 2-4 weeks Current Hospital Diet Patient's current hospital diet: AHA Diet (Heart Healthy), Diabetes Type 2 Diet Discharge Diet Recommended Diet: AHA Diet (Heart Healthy), Diabetes Type 2 Diet Procedures Procedures Performed: echocardiogram - normal heart function; evidence of old heart attack; mild aortic stenosis (calcium build-up on the valve) echo was UNCHANGED from 2016 Pending Studies Studies pending at discharge: no Medical Emergencies . Who to Call and When: Medical Emergencies: If at any time you feel your situation is an emergency, please call 911 immediately. . Non-Emergent Contact Non-Emergency issues call your: Primary Care Provider Call Non-Emergent contact if: temperature is above 100.5, your pain is concerning you, you have any medication questions . . "Provider Documentation" section prepared by Fly Headley. VTE Core Measure Inpt VTE Proph given/why not?: SCD's
--- NOTE | 2016-08-18 18:56 | Discharge Summary ---
Discharge Summary Admission Date: Aug 12, 2016 at 18:52 Discharge Date: Aug 14, 2016 Discharge Disposition: Home Principal Diagnosis: influenza A infection Problems/Secondary Diagnoses: 1. CAD with h/o multiple stents 2. carotid artery stenosis 3. ischemic cardiomyopathy with EF 55-60% 4. T2DM 5. BPH 6. chronic tobacco dependence 7. HTN 8. h/o gout 9. chronic right medial ankle pain 10. glaucoma 11. h/o stroke due to carotid stenosis 12. hyperlipidemia 13. mild-moderate aortic stenosis 14. brief run of atrial tachycardia 15. mild acute kidney injury - resolved; d/c creatinine 1.2 Procedures: echocardiogram - * -- Conclusions -- * The left ventricle is normal in size. * There is mild concentric left ventricular hypertrophy. * There is very mild hypokinesis of the inferior and posterior layne at the base with otherwise normal wall motion. * Left ventricular systolic function is normal. * Ejection Fraction = 55-60%. * Grade I diastolic dysfunction, (abnormal relaxation pattern). * The aortic vavle leaflets are moderately calcified. * Mild to moderate valvular aortic stenosis. * There is trace mitral regurgitation. * There is trace tricuspid regurgitation. Consultations: PT, OT Medication Reconciliation New Medications: Diclofenac Sod (Voltaren) 100 Appln/100 Gm Gel 1 APPLN EXT QID, #1 apply 2 grams to right ankle up to 4 times each day as needed for pain Ipratropium-Albuterol (Combivent Respimat) 1 Aer Aer 1 PUFFS INH QID PRN for cough, wheeze, #1 Losartan Potassium (Losartan Potassium) 25 Mg Tab 25 MG PO QAM, #30 TAB 5 Refills Metoprolol Succinate (Toprol Xl) 50 Mg Tab 1 TAB PO DAILY for 30 Days, #30 TAB 5 Refills Oseltamivir Phosphate (Tamiflu) 75 Mg Cap 75 MG PO BID for 4 Days, #8 CAP 0 Refills Continued Medications: Amlodipine (Norvasc) 10 Mg Tab 10 MG PO QAM, TAB Aspirin (Aspirin Chewable) 81 Mg Chew 81 MG PO QAM Clopidogrel (Plavix) 75 Mg Tab 75 MG PO QAM, TAB Dorzolamide Hcl (Trusopt Oph) 2 % Ibis 1 DROPS OPB BID, #10 ML 3 Refills Finasteride (Proscar) 5 Mg Tab 5 MG PO QAM, TAB Metformin Hcl (Glucophage) 1,000 Mg Tab 1000 MG PO BID, TAB Spironolactone (Aldactone) 25 Mg Tab 25 MG PO DAILY, TAB Tamsulosin Hcl (Flomax) 0.4 Mg Cap 0.4 MG PO QAM, CAP Travoprost (Travatan Z) 0.004 % Tu 1 DROPS OPB HS, #1 BTL 5 Refills [Livalo] () 4 MG PO QAM Discontinued Medications: Losartan Potassium & Hydrochlo (Losartan Potassium/Hydroc) 1 Tab Tab 1 TAB PO QAM for 90 Days, #90 TAB 3 Refills DOSE 100/25 Referrals At Discharge Follow up Referrals: Orthopedics Referral - Please Call For Appointment with Shadi Schneider D.O. Physician Referral - Please Call For Appointment with Marilyn Fields D.P.MHuong Discharge Exam Physical Exam: General Appearance: WD/WN, no apparent distress, + obese ENT: pharynx normal Neck: no JVD Respiratory/Chest: lungs clear, no respiratory distress, no accessory muscle use, + pertinent finding (previous mild end-exp wheezing resolved) Cardiovascular: regular rate, rhythm, no gallop, normal peripheral pulses, + systolic murmur (2/6 RUSB) Abdomen / GI: normal bowel sounds, non tender, soft, no organomegaly Extremities: no pedal edema Neurologic/Psychiatric: alert, oriented x 3 Hospital Course HISTORY OF PRESENT ILLNESS: The patient is a 76-year-old male who presented to the emergency department with generalized malaise, nausea and dyspnea on exertion. He had been unsteady on his feet with generalized weakness and difficulty walking. He had had a fall about 24 hours prior to admission. He also admitted to nausea, emesis, and diarrhea several days prior to admission. Denied any lightheadedness or dizziness or vertigo. On day of admission his took his blood pressure at home and reportedly it was 191/131. They contacted his PCP's office who recommended evaluation in the emergency department. He denied any recent travel and was not aware of any sick contacts. HOSPITAL COURSE: After undergoing work-up it was discovered that he was positive for influenza A infection. He made rapid improvement with simple supportive care measures including IV fluids and tamiflu. He had evidence of mild dehydration with acute kidney injury; creatinine improved from 1.4 to 1.2 with fluids. All GI symptoms, fatigue, and gait disturbance resolved prior to discharge. Serial chest x-rays failed to show complicating pneumonia. Cardiac enzymes were negative for ACS. Telemetry showed one brief run of atrial tachycardia. He was asymptomatic during this event. He was seen in consult by both PT and OT who felt he could return home safely. He will complete a course of tamiflu after discharge. Other issues addressed while here - 1. h/o gout - although he did not have active gouty arthritis, uric acid level was high, and he had been taking HCTZ prior to admission. It was advised to stop the HCTZ to allow uric acid level to fall and hopefully help him avoid future gout attacks. 2. HTN - was labile early on in his course but quickly improved with multiple medication adjustments. 3. CAD - it was discovered that he had not been taking his metoprolol for quite some time. He had been on toprol xl 200mg in the past. Since it was unknown how long he had been off of it he was restarted on a lower dose and tolerated it without difficulty. 4. atrial tachycardia - monitoring showed <10 second run of such. No a. fib/ flutter was seen. Consider outpatient event monitor to see if he is having runs of a. fib/flutter or other dysrhythmia. If a. fib was found, in light of high CHADs score and h/o stroke, anticoagulation would need to be considered. He will remain on beta mayra. 5. right medial ankle pain - chronic for 2-3 years. He had no evidence of synovitis or inflammatory arthritis on exam. Question tarsal tunnel syndrome or tibialis tendonitis. Symptoms were better with voltaren gel. Recommended podiatry referral or orthopedics referral after discharge for definitive treatment. Total Time Spent: Greater than 30 minutes This includes examination of the patient, discharge planning, medication reconciliation, and communication with other providers. Discharge Instructions Please refer to the electronic Patient Visit Report (Discharge Instructions) for additional information. Follow-Up 1. VISHAL Chatterjee - [facility] - FridayAugust 21 at 10:[address] Sundeep Huffman - August 22 at 2:30 pm Additional Copies To Shadi Schneider D.O.; Abdi Crawford D.O.; Sundeep Huffman M.D.; April Mcqueen PA-C
== END 2016-08-14 16:10 | disposition home or self-care (01) | DRG 153 ==
LOC: ENRESERVTM → ENRESERVDT → C.EDB 13:29 → C.MED 18:52
PROVIDERS: ADMIT Hospitalist; ATTEND Internal Medicine
DX: J11.1 Influenza due to unidentified influenza virus with other respiratory manifestations (principal); N17.9 Acute kidney failure, unspecified; R11.2 Nausea with vomiting, unspecified; R19.7 Diarrhea, unspecified; N40.0 Benign prostatic hyperplasia without lower urinary tract symptoms; H40.9 Unspecified glaucoma; E86.0 Dehydration; E11.9 Type 2 diabetes mellitus without complications; M10.00 Idiopathic gout, unspecified site; I35.0 Nonrheumatic aortic (valve) stenosis; E78.00 Pure hypercholesterolemia, unspecified; R26.89 Other abnormalities of gait and mobility; I25.10 Atherosclerotic heart disease of native coronary artery without angina pectoris; I10 Essential (primary) hypertension; I25.2 Old myocardial infarction; G57.50 Tarsal tunnel syndrome, unspecified lower limb; M76.829 Posterior tibial tendinitis, unspecified leg; R06.09 Other forms of dyspnea; R29.6 Repeated falls; Z86.73 Personal history of transient ischemic attack (TIA), and cerebral infarction without residual deficits; Z87.891 Personal history of nicotine dependence; Z95.828 Presence of other vascular implants and grafts; Z79.82 Long term (current) use of aspirin; Z79.02 Long term (current) use of antithrombotics/antiplatelets; Z79.4 Long term (current) use of insulin; Z79.899 Other long term (current) drug therapy

== ENCOUNTER → 2016-09-13 | Outpatient (CLI) | payer OTHER ==
[~2016-09-13] MED LIST changes: +CZR25 PO; +DORZ2SOL17 OPB; +IPRA1AER2 INH; -LOSA100T26 PO; +METO1TAB66 PO; -METO200T29 PO; -NIAC500T11 PO; +SPIR25TA89 PO; +TMF75 PO; +TRAV0.00 OPB; +VLTG EXT
[2016-09-13 13:38] LABS: BASO % 0.3 %; BASO ABS # 0.02 K/uL (0-0.2); COMPLETE YES; EOS % 1.7 %; HEMATOCRIT 44.2 % (42-52); IG% 0.3 %; LYMPH % 20.2 %; LYMPH ABS # 1.21 K/uL (1.2-3.4); MEAN CELL VOLUME 88.9 fL (80-100); MEAN CORPUSCULAR HEMOGLOBIN 30.6 pg (25-34); MEAN CORPUSCULAR HGB CONC 34.4 g/dl (32-36); MEAN PLATELET VOLUME 10.2 fL (7.4-10.4); MONO % 10.9 %; NEUT % 66.6 %; PLATELET COUNT 143 K/uL (130-400); RED BLOOD COUNT 4.97 M/uL (4.7-6.1); WHITE BLOOD COUNT 5.98 K/uL (4.8-10.8)
[2016-09-13 13:52] LABS: BLOOD UREA NITROGEN 26 mg/dl (7-18); BUN/CREATININE RATIO 23.4 (10-20); CALCIUM 9.1 mg/dl (8.5-10.1); CARBON DIOXIDE 22 mmol/L (21-32); CHLORIDE 105 mmol/L (98-107); GLUCOSE 134 mg/dl (70-99); POTASSIUM 4.3 mmol/L (3.5-5.1); SODIUM 138 mmol/L (136-145)
[2016-09-13 13:58] LABS: ESTIMATED AVERAGE GLUCOSE 160 mg/dl; HA1C FLAG Normal (Normal)
[2016-09-13 14:01] LABS: URINE PROTIEN/CREAT RATIO 0.9 (0-0.2); URINE TOTAL PROTEIN 120.9 mg/dl (0-11.9)
--- NOTE | 2016-09-19 06:44 | CODING QUERY MEDICAL NECESSITY ---
SUPPORTING DIAGNOSIS NEEDED A supporting diagnosis is required for the test/procedure performed on this patient in order for us to be reimbursed by the patient's insurance. Please provide a supporting diagnosis for the following test/procedure listed below next to the test name along with your signature. *If there is no additional diagnosis for this patient that would support the following test/procedure please document that below next to the test/procedure. Test(s)/Procedure(s) that require a supporting diagnosis: * VITAMIN D 25-HYDROXY DIAGNOSIS: * VITAMIN B-12 LEVEL DIAGNOSIS: * DOS: 09/13/16 Provider Signature: Date: Thank you Xenia Grossman Health Information Management Once completed, please kindly fax back to [phone] For questions please call [phone]
== END | disposition home or self-care (01) ==
LOC: C.LABBC 11:07
PROVIDERS: ATTEND Internal Medicine Geriatric Medicine
DX: I10 Essential (primary) hypertension (principal); I25.10 Atherosclerotic heart disease of native coronary artery without angina pectoris; M10.9 Gout, unspecified; E78.5 Hyperlipidemia, unspecified; E11.29 Type 2 diabetes mellitus with other diabetic kidney complication; G62.9 Polyneuropathy, unspecified; R80.9 Proteinuria, unspecified; E55.9 Vitamin D deficiency, unspecified

== ENCOUNTER → 2016-12-07 | Outpatient (CLI) | payer OTHER ==
[~2016-12-07] MED LIST changes: +METO-452 PO; -METO1TAB66 PO
[2016-12-07 13:06] LABS: BLOOD UREA NITROGEN 20 mg/dl (7-18); BUN/CREATININE RATIO 15.1 (10-20); CARBON DIOXIDE 25 mmol/L (21-32); CHLORIDE 104 mmol/L (98-107); GLUCOSE 159 mg/dl (70-99); POTASSIUM 4.5 mmol/L (3.5-5.1); SODIUM 139 mmol/L (136-145); URIC ACID 6.6 mg/dl (2.6-7.2)
[2016-12-07 13:09] LABS: CALCIUM 9.1 mg/dl (8.5-10.1)
[2016-12-07 13:40] LABS: ESTIMATED AVERAGE GLUCOSE 186 mg/dl; HA1C FLAG Normal (Normal)
== END | disposition home or self-care (01) ==
LOC: C.LABBC 11:08
PROVIDERS: ATTEND Internal Medicine Geriatric Medicine
DX: I10 Essential (primary) hypertension (principal); M10.9 Gout, unspecified; E55.9 Vitamin D deficiency, unspecified; E11.29 Type 2 diabetes mellitus with other diabetic kidney complication

== ENCOUNTER → 2016-12-31 | Outpatient (CLI) | payer OTHER ==
--- NOTE | 2016-12-31 12:26 | DIAGNOSTIC IMAGING REPORT ---
CHEST 2 VIEWS ROUTINE CLINICAL HISTORY: Peripheral edema dyspnea COMPARISON STUDY: 08/13/2016 FINDINGS: The bones soft tissues and hemidiaphragms are normal. The cardiomediastinal silhouette is normal. The lungs are clear. The pulmonary vasculature is normal. IMPRESSION: Negative chest. Electronically signed by: Dmitry Hernandez M.D. 12/31/2016 12:24 PM Dictated Date/Time: 12/31/2016 12:24 PM
--- NOTE | 2016-12-31 12:27 | DIAGNOSTIC IMAGING REPORT ---
RIGHT SHOULDER MIN 2 VIEWS ROUTINE CLINICAL HISTORY: Fall right Right pain COMPARISON: None. DISCUSSION: Considerable degenerative change acromioclavicular as well as glenohumeral joint. No well-defined acute bony abnormality. Cortical margins are intact. No abnormal soft tissue calcifications. There is no evidence for soft tissue swelling. IMPRESSION: Considerable degenerative change. No acute bony abnormality. Electronically signed by: Dmitry Hernandez M.D. 12/31/2016 12:26 PM Dictated Date/Time: 12/31/2016 12:25 PM
[2016-12-31 13:35] LABS: BASO % 0.5 %; BASO ABS # 0.03 K/uL (0-0.2); COMPLETE YES; EOS % 2.5 %; HEMATOCRIT 44.6 % (42-52); IG% 0.3 %; LYMPH % 19.8 %; LYMPH ABS # 1.26 K/uL (1.2-3.4); MEAN CELL VOLUME 89.6 fL (80-100); MEAN CORPUSCULAR HEMOGLOBIN 29.9 pg (25-34); MEAN CORPUSCULAR HGB CONC 33.4 g/dl (32-36); MEAN PLATELET VOLUME 9.9 fL (7.4-10.4); MONO % 9.9 %; PLATELET COUNT 167 K/uL (130-400); RED BLOOD COUNT 4.98 M/uL (4.7-6.1); WHITE BLOOD COUNT 6.35 K/uL (4.8-10.8)
[2016-12-31 14:23] LABS: BLOOD UREA NITROGEN 22 mg/dl (7-18); BUN/CREATININE RATIO 18.5 (10-20); CALCIUM 9.2 mg/dl (8.5-10.1); CARBON DIOXIDE 25 mmol/L (21-32); CHLORIDE 108 mmol/L (98-107); GLUCOSE 145 mg/dl (70-99); POTASSIUM 4.4 mmol/L (3.5-5.1); SODIUM 141 mmol/L (136-145)
== END | disposition home or self-care (01) ==
LOC: C.RADBC 11:57
PROVIDERS: ATTEND Physician Assistant Medical
DX: R60.9 Edema, unspecified (principal); W19.XXXA Unspecified fall, initial encounter; M19.011 Primary osteoarthritis, right shoulder

== ENCOUNTER → 2017-03-10 | Outpatient (CLI) | payer OTHER ==
[~2017-03-10] MED LIST changes: -METO-452 PO; +METO1TAB66 PO
[2017-03-10 14:23] LABS: ESTIMATED AVERAGE GLUCOSE 169 mg/dl; HA1C FLAG Normal (Normal)
[2017-03-10 14:25] LABS: ALT/SGPT 48 U/L (12-78); AST/SGOT 20 U/L (15-37); BLOOD UREA NITROGEN 13 mg/dl (7-18); BUN/CREATININE RATIO 10.8 (10-20); CALCIUM 8.9 mg/dl (8.5-10.1); CARBON DIOXIDE 25 mmol/L (21-32); CHLORIDE 108 mmol/L (98-107); GLUCOSE 138 mg/dl (70-99); SODIUM 139 mmol/L (136-145)
[2017-03-10 14:35] LABS: ALB/GLOB RATIO 0.9 (0.9-2); ALKALINE PHOSPHATASE 83 U/L (45-117); CHOLESTEROL 139 mg/dl (0-200); CHOLESTEROL/HDL RATIO 3.8; HDL CHOLESTEROL 37 mg/dl; LDL CHOLESTEROL CALCULATED 56 mg/dl; THYROID STIMULATING HORMONE 0.802 uIu/ml (0.300-4.500); TRIGLYCERIDES 231 mg/dl (0-150); VERY LOW DENSITY LIPOPROT CALC 46 mg/dl
--- NOTE | 2017-03-21 11:12 | CODING QUERY MEDICAL NECESSITY ---
CQSUPPORTING DIAGNOSIS NEEDED A supporting diagnosis is required for the test/procedure performed on this patient in order for us to be reimbursed by the patient's insurance. Please provide a supporting diagnosis for the following test/procedure listed below next to the test name along with your signature. *If there is no additional diagnosis for this patient that would support the following test/procedure please document that below next to the test/procedure. Test(s)/Procedure(s) that require a supporting diagnosis: DOS 03/10/17 VITAMIN B12 TEST Provider Signature: Date: Thank you Melba Siu Health Information Management Once completed, please kindly fax back to [phone] For questions please call [phone]
== END | disposition home or self-care (01) ==
LOC: C.LABBC 10:23
PROVIDERS: ATTEND Internal Medicine Geriatric Medicine
DX: I10 Essential (primary) hypertension (principal); I25.10 Atherosclerotic heart disease of native coronary artery without angina pectoris; E11.29 Type 2 diabetes mellitus with other diabetic kidney complication; G62.9 Polyneuropathy, unspecified; E55.9 Vitamin D deficiency, unspecified

== ENCOUNTER 2017-09-20 12:34 | Emergency (ER) | payer OTHER ==
[~2017-09-20] VITALS: Ht 177.8 cm; Wt 111.0 kg
[~2017-09-20 12:34] MED LIST changes: +METO-452 PO; -METO1TAB66 PO
[2017-09-20 12:45] VITALS: TEMP 37; Ht 177.8 cm; Wt 111.0 kg
[2017-09-20] MEDS ORDERED: SULFAMETHOXAZOLE/TRIMETHOPRIM DS 800/160MG TAB PO STA (13:01)
[2017-09-20] MEDS ORDERED: LIDO/EPINEPHRINE/SOD BICARB 20 ML VIAL INFIL ONE ×2 (13:04→13:15)
[2017-09-20] MEDS ORDERED: AMOXICILLIN/CLAVULANATE TAB 875 MG TAB PO ONE (13:15)
--- NOTE | 2017-09-20 13:29 | EMERGENCY ROOM VISIT NOTE ---
History Report prepared by Marily: Kiara Rodríguez Under the Supervision of: Dr. Israel Mahan M.D. First contact with patient: 12:54 Chief Complaint: OTHER COMPLAINT Stated Complaint: BOIL ON BACK History of Present Illness The patient is a 77 year old male who presents to the Emergency Room with complaints of a constant area of redness and swelling on his back beginning a week ago. The patient reports using hot compresses with no relief. He notes pain with laying on his back. He also reports some intermittent left abdominal pain beginning a couple days ago. He denies any worsening of abdominal pain with movement. When he has the episodes of abdominal pain it typically lasts for a 1-2 minutes. Presently, the patient denies any abdominal pain. He denies any fevers or urinary burning. The patient has had cysts, boils and black heads removed/expressed from his back previously. Source of History: patient Onset: a week ago Position: back Quality: other (area of redness and swelling) Timing: intermittent Associated Symptoms: + abdominal pain, No fevers, No urinary symptoms Review of Systems See HPI for pertinent positives & negatives. A total of 10 systems reviewed and were otherwise negative. Past Medical & Surgical Medical Problems: (1) AMS to rule out CVA (2) Diabetes (3) Heart disease (4) Hypertension (5) Right ankle pain (6) Shortness of breath Family History Patient reports no known family medical history. Social History Smoking Status: Former Smoker Alcohol Use: none Drug Use: none Marital Status: Housing Status: lives with family Occupation Status: retired Current/Historical Medications Scheduled Amlodipine (Norvasc), 10 MG PO QAM Amoxicillin & Pot Clavulanate (Augmentin 875-125 mg), 875 MG PO BID Aspirin (Aspirin Chewable), 81 MG PO QAM Cholecalciferol (Vitamin D3), 2,000 UNITS PO DAILY Clopidogrel (Plavix), 75 MG PO QAM Dorzolamide Hcl (Trusopt Oph), 1 DROPS OPB BID Finasteride (Proscar), 5 MG PO QAM Furosemide (Lasix), 20 MG PO DAILY Glimepiride (Glimepiride), 2 MG PO DAILY Losartan Potassium (Cozaar), 100 MG PO DAILY Metoprolol Succinate (Toprol Xl), 50 MG PO DAILY Pitavastatin Calcium (Livalo), 4 MG PO DAILY Spironolactone (Aldactone), 25 MG PO DAILY Sulfa/Trimethoprim (Bactrim Ds 800MG/160MG), 1 TAB PO BID Tamsulosin Hcl (Flomax), 0.4 MG PO QAM Travoprost (Travatan Z), 1 DROPS OPB HS [Livalo], 4 MG PO QAM Allergies Coded Allergies: Statins (Unverified Adverse Reaction, Intermediate, CRAMPS, 09/20/17) Physical Exam Vital Signs Date Time Temp Pulse Resp B/P (MAP) Pulse Ox O2 Delivery O2 Flow Rate FiO2 09/20/17 14:18 86 20 119/74 100 09/20/17 12:45 37.0 94 18 124/68 96 Room Air Physical Exam GENERAL: Patient is in no acute distress. HEENT: No acute trauma, normocephalic atraumatic, mucous membranes moist, no nasal congestion, no scleral icterus. NECK: No stridor, no adenopathy, no meningismus, trachea is midline. LUNGS: Clear to auscultation bilaterally, no wheeze, no rhonchi, breath sounds equal. HEART: Without murmurs gallops or rubs, regular rate and rhythm. ABDOMEN: Soft, nontender, bowel sounds positive, no hernias, no peritonitis. EXTREMITIES: No cyanosis or edema, full range of motion of all the joints without pain or difficulty, no signs for acute trauma. BACK: Lower thoracic/upper lumbar 5-6 cm area of erythema, midline, no discharge , no true fluctuance, but tender to palpation. NEUROLOGIC: Oriented x 3, no acute motor or sensory deficits, no focal weakness. SKIN: No rash, no jaundice, no diaphoresis. Medical Decision & Procedures Medications Administered Medications (Trade) Dose Ordered Sig/Юлия Route Start Time Stop Time Status Last Admin Dose Admin Amoxicillin/ Clavulanate Potassium (Augmentin Tab) 875 mg ONE ONCE PO 09/20/17 13:15 09/20/17 13:16 DC 09/20/17 13:53 875 MG Trimethoprim/ Sulfamethoxazole (Septra Ds 800/ 160MG Tab) 1 tab NOW STAT PO 09/20/17 13:01 09/20/17 13:03 DC 09/20/17 13:53 1 TAB Procedure Incision & Drainage Indication: Abscess. Location: Lower thoracic/upper lumbar Verbal consent was obtained after the risks and benefits were explained, including but not limited to bleeding, scarring, infection, pain, and bone/joint /nerve damage. At this time, the risks of the procedure are less than the risks of NOT performing the procedure. A time out was taken and the correct patient and site identified. The skin was prepped with betadine and a sterile field set. The wound was anesthetized with 3 cc of 1% lidocaine with epinephrine. The abscess cavity was entered with a number 11 blade and purulent, thick material expressed. Copious irrigation was performed using saline. The wound was explored for foreign bodies and none found. Debridement was not performed. Packing placed and a sterile dressing applied. Detailed wound care instructions and signs and symptoms of worsening infection reviewed with the patient. No complications and the patient tolerated the procedure well. ED Course 1255: The patient was evaluated in room A10. A complete history and physical exam was performed. 1301: Ordered Trimethoprim/Sulfamethoxazole 1 tab PO. 1304: Ordered Lidocaine/Epinephrine 20 ml INFIL. 1315: Ordered Lidocaine/Epinephrine 20 ml INFIL, Augmentin Tab 875 mg PO. 1340: Reevaluated the patient. Discussed results and discharge instructions: He verbalized understanding and agreement. The patient is ready for discharge. Medical Decision Differential diagnoses include: cellulitis, abscess, MRSA, intraabdominal mass, kidney failure, spleen issue, musculoskeletal pain. The patient presents with what seemed to be an abscess with some localized cellulitis to the mid back. This was located near a large blackhead that had been giving the patient difficulty for years. Patient was not toxic or febrile. Using lidocaine with epinephrine, using sterile technique, the abscess was opened and purulent, thick material was expressed. The debris from the blackhead was also removed. Packing was placed. The patient received oral Augmentin and oral Bactrim. He will be discharged on both of these medications. Patient needs to have the packing removed in 2 days. He requires general surgical follow-up to have the complete cystic structure removed once the infection has cleared. If he is worsening, he can return for reassessment. The patient did have a culture sent, this result is pending. With regard to the left upper quadrant abdominal pain. This has been intermittent and short-lived, there is no pain right now, outpatient family doctor follow-up was suggested. Medication Reconcilliation Current Medication List: was personally reviewed by me Blood Pressure Screening Patient's blood pressure: Normal blood pressure Impression Primary Impression: Abscess of back Scribe Attestation The scribe's documentation has been prepared under my direction and personally reviewed by me in its entirety. I confirm that the note above accurately reflects all work, treatment, procedures, and medical decision making performed by me. Departure Information Dispostion Home / Self-Care Prescriptions Amoxicillin & Pot Clavulanate (Augmentin 875-125 mg) 1 Tab Tab 875 MG PO BID for 10 Days, #20 TAB Prov: Israel Mahan M.D. 09/20/17 Sulfa/Trimethoprim (Bactrim Ds 800MG/160MG) Tab 1 TAB PO BID for 10 Days, #20 TAB Prov: Israel Mahan M.D. 09/20/17 Referrals Sundeep Huffman M.D. (PCP) Forms HOME CARE DOCUMENTATION FORM, IMPORTANT VISIT INFORMATION, WORK / SCHOOL INSTRUCTIONS Patient Instructions My [facility] Additional Instructions bactrim 2x per day for 10 days augmentin 2x per day for 10 days warm compresses may help packing out in 2 days return for fever or if worsening see surgeon for complete abscess removal
[2017-09-20] MEDS ORDERED: SULF800T23 PO (13:39)
[2017-09-20] MEDS ORDERED: AMOX875T PO (13:39)
[2017-09-20] MEDS ORDERED: FURO-85 PO (14:04)
[2017-09-20] MEDS ORDERED: CHOL1000 PO (14:06)
[2017-09-20] MEDS ORDERED: GLIM2TAB2 PO (14:06)
[2017-09-20] MEDS ORDERED: LOSA1TAB38 PO (14:07)
[2017-09-20] MEDS ORDERED: PITA1TAB19 PO (14:09)
[2017-09-20] MEDS ORDERED: METO-217 PO (14:10)
[2017-09-20 14:18] VITALS: BP 119/74; PULSE 86; O2SAT 100
== END 2017-09-20 14:19 | disposition home or self-care (01) ==
LOC: C.EDB 12:35 → C.EDA 14:19
DX: L02.212 Cutaneous abscess of back [any part, except buttock and flank] (principal); E11.9 Type 2 diabetes mellitus without complications; I10 Essential (primary) hypertension; Z87.891 Personal history of nicotine dependence; Z79.82 Long term (current) use of aspirin; Z79.02 Long term (current) use of antithrombotics/antiplatelets; Z79.84 Long term (current) use of oral hypoglycemic drugs; Z88.8 Allergy status to other drugs, medicaments and biological substances

== ENCOUNTER → 2017-09-26 | Outpatient (CLI) | payer OTHER ==
[~2017-09-26] MED LIST changes: +AMOX875T PO; +CHOL1000 PO; -CZR25 PO; +FURO-85 PO; +GLIM2TAB2 PO; -IPRA1AER2 INH; +LOSA1TAB38 PO; -METF-384 PO; +METO-217 PO; -METO-452 PO; +PITA1TAB19 PO; +SULF800T23 PO; -TMF75 PO; -VLTG EXT
== END | disposition home or self-care (01) ==
LOC: C.LABBC 12:58
PROVIDERS: ATTEND Internal Medicine
DX: E11.9 Type 2 diabetes mellitus without complications (principal)